=== PATIENT | male | born 1980 | race American Indian/Alaskan Native ===

== ENCOUNTER 2017-02-19 10:06 | Emergency (ER) | payer SELFPAY ==
[2017-02-19 10:11] VITALS: BMI 33.1
[2017-02-19 10:28] VITALS: TEMP 98.2
[2017-02-19] MEDS ORDERED: Albuterol 0.083% Inhal Sol (2.5 mg/3 mL) UD IH STA (10:53)
--- NOTE | 2017-02-19 11:31 | ED PDOC ---
Arrival/HPI - General Chief Complaint: Shortness Of Breath Time Seen by Provider: 02/19/17 10:41 Historian: Patient - History of Present Illness Narrative History of Present Illness (Text): 02/19/17 11:32 A 37 year old male, whose past medical history includes asthma, presents to the emergency department complaining of chest tightness for the past 5- 6 days. Patient reports he feels a lump sensation in center of chest. Patient also reports back pain with movement. Patient notes a productive cough, shortness of breath and left shoulder and arm pain but denies any neck pain or any other complaints at this time. Patient reports to smoking vapes. PMD: None Time/Duration: < week Symptom Onset: Gradual Symptom Course: Unchanged Activities at Onset: Rest Context: Home Past Medical History - Provider Review Nursing Documentation Reviewed: Yes - Psychiatric Hx Substance Use: Yes (Hx of substance abuse) Family/Social History - Physician Review Nursing Documentation Reviewed: Yes Family/Social History: No Known Family HX Smoking Status: Vape Hx Alcohol Use: No Hx Substance Use: Yes (Hx of substance abuse) Allergies/Home Meds Allergies/Adverse Reactions: Allergies No Known Allergies Allergy (Verified 02/19/17 10:11) Review of Systems - Physician Review All systems were reviewed & negative as marked: Yes - Review of Systems Respiratory: SOB Cardiovascular: Chest Pain Musculoskeletal: Back Pain, Other (left arm pain) Physical Exam Vital Signs Reviewed: Yes Vital Signs Temp Pulse Resp BP Pulse Ox 02/19/17 12:38 79 17 130/78 98 02/19/17 10:27 98.2 F 88 15 126/78 97 02/19/17 10:13 17 Respiratory Rate: Normal Appearance: Positive for: Well-Appearing, Non-Toxic, Comfortable Pain Distress: None Mental Status: Positive for: Alert and Oriented X 3 - Systems Exam Head: Present: Atraumatic, Normocephalic Pupils: Present: PERRL Extroacular Muscles: Present: EOMI Conjunctiva: Present: Normal Mouth: Present: Moist Mucous Membranes Neck: Present: Normal Range of Motion. No: Meningeal Signs, MIDLINE TENDERNESS , Paraspinal Tenderness, Bruit Respiratory/Chest: Present: Clear to Auscultation, Good Air Exchange. No: Respiratory Distress, Accessory Muscle Use Cardiovascular: Present: Regular Rate and Rhythm, Normal S1, S2. No: Murmurs Abdomen: Present: Normal Bowel Sounds. No: Tenderness, Distention, Peritoneal Signs Back: Present: Other (mid thoracic tenderness paraspinal) Upper Extremity: Present: Normal Inspection. No: Cyanosis, Edema Lower Extremity: Present: Normal ROM, Tenderness (Left shoulder). No: Edema Neurological: Present: GCS=15, CN II-XII Intact, Speech Normal Skin: Present: Warm, Dry, Normal Color. No: Rashes Psychiatric: Present: Alert, Oriented x 3, Normal Insight, Normal Concentration Medical Decision Making ED Course and Treatment: 02/19/17 11:28 Impression: A 37 year old male with chest tightness, shortness of breath and cough. Differential Diagnosis included but are not limited to: bronchitis; muscular pain Plan: -- EKG -- chest xray -- Motrin, Albuterol -- Reassess and disposition Progress Notes: EKG: Ordered, reviewed, and independently interpreted the EKG. Rate : 86 BPM Rhythm : NSR Interpretation : incomplete right bundle branch block Comparison : No previous EKG for comparison. 02/19/17 12:30 Chest xray no active disease, interpreted by me. On re-evaluation, patient feels better and is in no acute distress. I have discussed the results and plan with the patient, who expresses understanding. Patient in agreement with plan to be discharged home. Patient is stable for discharge. Patient was instructed to follow up with physician or return if symptoms worsen or new concerning symptoms arise. - RAD Interpretation Radiology Orders: 02/19/17 10:53 CHEST TWO VIEWS (PA/LAT) [RAD] Stat CXR negative Rental Sales Representative: ED Physician - EKG Interpretation Interpreted by ED Physician: Yes Type: 12 lead EKG - Medication Orders Current Medication Orders: Discontinued Medications Albuterol Sulfate (Albuterol 0.083% Inhal Gela (2.5 Mg/3 Ml) Ud) 2.5 mg IH STAT STA Stop: 02/19/17 10:54 Last Admin: 02/19/17 11:20 Dose: 2.5 mg Ibuprofen (Motrin Tab) 800 mg PO STAT STA Stop: 02/19/17 10:54 Last Admin: 02/19/17 11:20 Dose: 800 mg - Scribe Statement The provider has reviewed the documentation as recorded by the Edmond Magaña Provider Scribe Attestation: All medical record entries made by the Scribe were at my direction and personally dictated by me. I have reviewed the chart and agree that the record accurately reflects my personal performance of the history, physical exam, medical decision making, and the department course for this patient. I have also personally directed, reviewed, and agree with the discharge instructions and disposition. Disposition/Present on Arrival - Present on Arrival Any Indicators Present on Arrival: No History of DVT/PE: No History of Uncontrolled Diabetes: No Urinary Catheter: No History of Decub. Ulcer: No History Surgical Site Infection Following: None - Disposition Have Diagnosis and Disposition been Completed?: Yes Diagnosis: Bronchitis, Back pain, Chest pain Disposition: HOME/ ROUTINE Disposition Time: 12:53 Patient Plan: Discharge Condition: IMPROVED Discharge Instructions (ExitCare): Chest Pain (ED) Additional Instructions: Nacho, thank you for letting us take care of you today. Your provider was Dr. Mccallum. You were treated for Bronchitis, Chest Pain, Back Pain. The emergency medical care you received today was directed at your acute symptoms. If you were prescribed any medication, please fill it and take as directed. It may take several days for your symptoms to resolve. Return to the Emergency Department if your symptoms worsen, do not improve, or if you have any other problems. Please contact your doctor or call one of the physicians/clinics you have been referred to that are listed on the Patient Visit Information form that is included in your discharge packet. Bring any paperwork you were given at discharge with you along with any medications you are taking to your follow up visit. Our treatment cannot replace ongoing medical care by a primary care provider (PCP) outside of the emergency department. Thank you for allowing the [facility] team to be part of your care today. If you had an X-Ray or CT scan: A Radiologist will review the ED reading if any change in treatment is needed we will contact you. If you had a blood, urine, or wound culture: It will take several days for the results, if any change in treatment is needed we will contact you. If you had an STI test: It will take 48 hours for the results. Please call after 1 week if you have not heard back. Prescriptions: Albuterol HFA [Ventolin HFA 90 mcg/actuation (8 g)] 2 puff IH Q4 #1 puff Ibuprofen [Motrin] 600 mg PO Q6 PRN #30 tab PRN Reason: Pain, Moderate (4-7) Referrals: PCP,NO [Primary Care Provider] - Follow up with primary Forms: [facility] ([place]), WORK NOTE
[2017-02-19 12:39] VITALS: BP 130/78; PULSE 79; RESP 17; O2SAT 98
--- NOTE | 2017-02-19 13:01 | RAD ---
HISTORY: cough r/o pna COMPARISON: No prior. TECHNIQUE: Chest PA and lateral FINDINGS: LUNGS: No active pulmonary disease. PLEURA: No significant pleural effusion identified. No pneumothorax apparent. CARDIOVASCULAR: Normal. OSSEOUS STRUCTURES: No significant abnormalities. VISUALIZED UPPER ABDOMEN: Normal. OTHER FINDINGS: None. IMPRESSION: No active disease.
--- NOTE | 2017-02-19 17:25 | CARD ---
APPROVED REPORT EKG Measurement Heart [id number] <Conclusion> Normal sinus rhythm Incomplete right bundle branch block Borderline ECG
== END 2017-02-19 12:53 | disposition home or self-care (01) ==
LOC: ED 10:06
DX: J40 Bronchitis, not specified as acute or chronic (principal); R07.9 Chest pain, unspecified; M54.9 Dorsalgia, unspecified; Z72.0 Tobacco use